=== PATIENT | male | born 1945 | race Caucasian/White ===

== ENCOUNTER → 2024-06-29 10:11 | Outpatient (REF) | payer MEDICARE, OTHER, SELFPAY ==
[2024-06-29 12:13] LABS: Blood Urea Nitrogen 27 mg/dl (9-20); Calcium 9.3 mg/dl (8.4-10.2); Carbon Dioxide 27 mmol/L (22-30); Chloride 99 mmol/L (98-107); Glucose 109 mg/dl (70-99); Potassium 4.6 mmol/L (3.5-5.1); Sodium 137 mmol/L (135-145); eGFR > 60.00
== END ==
LOC: REG 10:11
PROVIDERS: ATTENDING PHYSICIAN Surgery; FAMILY PHYSICIAN Family Medicine
DX: K43.2 Incisional hernia without obstruction or gangrene (principal)
CPT/HCPCS: 36415; 80048

== ENCOUNTER → 2024-07-06 13:23 | Outpatient (REF) | payer MEDICARE, OTHER, SELFPAY | LOC: RAD 13:23 | PROVIDERS: ATTENDING PHYSICIAN Surgery; FAMILY PHYSICIAN Family Medicine | DX: K43.2 Incisional hernia without obstruction or gangrene (principal) | CPT/HCPCS: 74177; Q9967 ==

== ENCOUNTER → 2024-08-17 07:13 | Outpatient (REF) | payer MEDICARE, OTHER, SELFPAY | LOC: SDSPAT 07:13 | PROVIDERS: ATTENDING PHYSICIAN Surgery; FAMILY PHYSICIAN Family Medicine | DX: K43.2 Incisional hernia without obstruction or gangrene (principal) | CPT/HCPCS: 36415; 93005 ==

== ENCOUNTER 2024-08-21 06:31 | Day surgery (SDC) | payer MEDICARE, OTHER, SELFPAY ==
[2024-08-17 11:49] VITALS: BMI 34.1
--- NOTE | 2024-08-17 13:10 | PTCARENOTE ---
Abnormal ECG 08/17/[address] Hutchinson, no further interventions requested.
[2024-08-21] VITALS (10 sets, daily range): BP systolic 129–155; BP diastolic 52–73; BMI 34.1
[2024-08-21] MEDS: HEPARIN 5000 UNITS SC (13:42)
[2024-08-21] MEDS: TYLENOL 1000 MG PO (13:42)
[2024-08-21] MEDS: NORMOSOL-R/PLASMALYTE-A 1000 IV (13:43)
--- NOTE | 2024-08-21 20:15 | W.IMMPOSTOP ---
Surgical Immed Post Op Note
-
Primary Surgeon: Jodi
Assisting: Marques JONES
Pre-op Diagnosis: Ventral incisional hernia
Post-op Diagnosis: Same
Procedure Performed: Robot assisted laparoscopic repair of ventral incisional hernia (rTAPP)
Anesthesia Type: GETA + TAP block
Specimen / Cultures: None
Estimated Blood Loss: 10cc
Complications: None immediate
Operative Findings: 10cm x 6cm defect closed, 20cm x 16cm prolene mesh preperitoneal, approx 3 hr case, straight cath at case conclusion
[2024-08-21] MEDS: LOVENOX 40 MG SC (23:35)
[2024-08-22 01:01] VITALS: BP 157/70
[2024-08-22] MEDS: TYLENOL 1000 MG PO ×2 (02:55→08:04)
[2024-08-22 03:00] VITALS: BP 140/78
[2024-08-22 07:38] VITALS: BP 172/81
[2024-08-22] MEDS: CRESTOR 40 MG PO (08:04)
[2024-08-22] MEDS: COZAAR 50 MG PO (08:04)
[2024-08-22] MEDS: ASPIR LOW (ENTERIC COATED) 81 MG PO (08:04)
[2024-08-22] MEDS: LEXAPRO 10 MG PO (08:04)
[2024-08-22] MEDS: TOPROL XL 50 MG PO (08:04)
[2024-08-22] MEDS: ORETIC 12.5 MG PO (08:04)
--- NOTE | 2024-08-22 08:50 | W.PN.GS2 ---
Today's Communication / Plan
-
DC home
Assessment / Plan
-
79M POD1 s/p rTAPP VIHR
AFVSS, ambulating, voiding, jadyn PO, passing flatus, denies n/v
DC home
Subjective Data
-
Date of Service: August 22, 2024
AFVSS, ambulating, voiding, denies n/v, jadyn PO, passing flatus
Objective Data
-
Intake and Output
08/21/24 08/22/24 08/23/24
06:59 06:59 06:59
Intake Total 720 / 720
Output Total 600 / 600
Balance 120 / 120
Intake:
Oral fluids 120 / 120
IV fluids (Total) 600 / 600
normosol 600 / 600
Output:
Urine, Da Silva 400 / 400
Urine, Voided 200 / 200
Vital Signs
Temp Pulse Resp BP Pulse Ox
97.9 F 58 16 172/81 96
08/22/24 07:38 08/22/24 08:04 08/22/24 07:38 08/22/24 08:04 08/22/24 07:38
Physical Exam
-
Gen: NAD
Abd: soft, nt, nd, incisions cdi, ab binder in place
Patient has a da silva catheter: No
Patient has a central line: No
--- NOTE | 2024-08-22 09:00 | W.DS.TRANS ---
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
-
Discharge Instructions:
Sleep Apnea Risk Intermediate
Discharge Diagnosis/Procedures Incisional hernia repair
Diet As tolerated
Additional Diets Go slow, limit heavy foods and ruffage for the
first week or so, 6 small meals instead of 3 big
ones
Activity No strenuous activity,Other activity
Additional Activity Wear abdominal binder at all times except when
showering
Driving Restrictions No driving for 24 hours
Bathing Restrictions OK to Shower
Wound Care Allow skin glue to flake off on its own
Instructions: Abdominal wall hernia repair - Discharge instructions
Stand-Alone Forms:
Changes to Home Medications: No
Discharge Medications:
DC Medications w/original date entered in [employer]
escitalopram oxalate 10 mg tablet 10 mg PO DAILY 12/31/22
metoprolol succinate 50 mg tablet,extended release 24 hr 50 mg PO DAILY 12/31/22
rosuvastatin 40 mg tablet (Crestor) 40 mg PO DAILY 12/31/22
aspirin 81 mg tablet,delayed release 81 mg PO DAILY 01/09/23
losartan 50 mg-hydrochlorothiazide 12.5 mg tablet 0.5 tab PO DAILY 02/25/23
tramadol 50 mg tablet 50 mg PO Q6H PRN Pain #40 tabs 08/22/24
Home Medication Changes
Pending Results: No
--- NOTE | 2024-08-22 10:06 | CM ---
CM reviewed chart, patient admitted under [facility], for discharge today. Patient denies any needs from CM, reports he has good support from his children. Patient reports his son will provide transportation home. CM will continue to follow for all
discharge planning needs.
Plan; home no needs, son to transport home.
--- NOTE | 2024-08-28 09:06 | OR.RPT ---
Addendum entered and electronically signed by Kiel Zapata MD 08/28/24 10:50:
Date of surgery: 08/21/24
Original Note:
Operative Report
Operative Report
Primary Surgeon: Jodi
Assisting: Marques JONES
Pre-op Diagnosis: Ventral incisional hernia
Post-op Diagnosis: Same
Procedure Performed: Robot assisted laparoscopic repair of ventral incisional hernia (rTAPP)
Anesthesia Type: GETA + TAP block
Specimen / Cultures: None
Estimated Blood Loss: 10cc
Complications: None immediate
Operative Findings: 10cm x 6cm defect closed, 20cm x 16cm prolene mesh preperitoneal, approx 3 hr case, straight cath at case conclusion
Indications:� This 79M developed a symptomatic reducible ventral incisional hernia. Robot assisted laparoscopic repair was planned.
Description of procedure:� The patient was taken to the operating room and positioned into supine position. The patient�s abdomen was prepped and draped in standard sterile fashion. A time-out was completed verifying correct patient, procedure,
site, positioning, and implants and special equipment prior to beginning this procedure.� A stab incision was made in the left upper quadrant, a Veress needle was inserted and proper position was confirmed by aspiration and saline drop test.
Following this, pneumoperitoneum was created with insufflation of carbon dioxide to 12 mmHg. Then a 8mm robotic trocar was inserted at the left anterior axillary line at the level of the umbilicus. The laparoscope was inserted and no injuries were
identified in the area. Under direct visualization, the initial trocar was exposed and two 8mm trocars were placed a hand's breadth above and below the initial trocar under direct visualization.
Attention was turned to the defect. The peritoneum was incised several cm superior to the defect and a peritoneal flap was developed in transverse and caudad directions using blunt and sharp dissection and judicious electrocautery. The defect
measured as above. The defect was closed sequentially with 0 PDS stratafix suture after lowering the intra-abdominal pressure to 6mm Hg. An 45m90sy bard soft mesh was passed into the abdomen. It was placed against the underside of the abdominal wall
and secured in place with 2-0 vicryl sutures at all four corners as well as under the defect. The flap was closed over the mesh and secured with 2-0 monocryl stratafix suture. Several flap rents were closed with 2-0 monocryl stratatix and 2-0 vicryl
suture. A 14g angiocath was used to decompress the preperitoneal space. The flap sealed and suctioned nicely up to the abdominal wall. The mesh did not fold nor curl. A transversus abdominis plane block was then performed under laparoscopic vision
with marcaine/decadron.
After ensuring adequate hemostasis, the trocars were removed and the pneumoperitoneum allowed to escape. The trocar incisions were closed at the skin level using 4-0 monocryl and topical skin adhesive. All counts were correct. The patient tolerated
the procedure well and was taken to the postanesthesia care unit in stable condition.
The assistance of Marques DILLON was required due to the complexity of the procedure. During the procedure she assisted with retraction, resection, block and closure of the wound.
== END 2024-08-22 10:25 | disposition home or self-care (01) ==
LOC: SDS 06:31
PROVIDERS: ATTENDING PHYSICIAN Surgery
DX: K43.2 Incisional hernia without obstruction or gangrene (principal)
CPT/HCPCS: 49593; C1781